=== PATIENT | female | born 1960 | race Caucasian/White ===

== ENCOUNTER 2019-07-20 05:25 | Emergency (ER) | payer SELFPAY ==
[~2019-07-20] VITALS: Ht 157.5 cm; Wt 75.0 kg
[2019-07-20 05:32] VITALS: BP 157/79
[2019-07-20] MEDS ORDERED: KETOROLAC 30 MG/ML VIAL IVP ONE (05:50)
[2019-07-20] MEDS ORDERED: PROCHLORPERAZINE 10 MG/2 ML VIAL IVP ONE (05:50)
[2019-07-20] MEDS ORDERED: diphenhydrAMINE 50 MG/ML VIAL IVP ONE (05:50)
[2019-07-20 06:24] VITALS: BP 157/79
== END 2019-07-20 06:24 | disposition home or self-care (01) ==
LOC: MED 05:25
DX: R51 Headache (principal); R11.2 Nausea with vomiting, unspecified; M25.561 Pain in right knee; M25.562 Pain in left knee; I10 Essential (primary) hypertension
CPT/HCPCS: 96374; 96375; 99283; J0780; J1200; J1885